=== PATIENT | male | born 1940 | race Caucasian/White ===

== ENCOUNTER 2020-05-20 06:44 | Observation (INO) ==
[2020-05-20] MEDS ORDERED: 0.9 % Sodium Chloride 500 ML IVC ONE (07:01)
[2020-05-20] MEDS ORDERED: Ondansetron 4 MG/2 ML VIAL IVP ONE (07:01)
[2020-05-20] MEDS ORDERED: Isovue-370 500 ML BOTTLE IVP ONE (07:01)
[2020-05-20 07:22] LABS: Basophils # 0.1 K/mcL (0.0-0.2); Basophils % 0.5 %; Eosinophils # 0.1 K/mcL (0.0-0.6); Eosinophils % 0.9 %; Hematocrit 45.2 % (37.5-50.1); Hemoglobin 15.1 g/dL (12.9-16.9); Immature Granulocytes % 0.3 % (0-4); Lymphocytes # 1.9 K/mcL (0.6-4.6); Lymphocytes % 19.5 %; Mean Corpuscular HGB Conc 33.4 g/dL (31.6-35.5); Mean Corpuscular Hemoglobin 31.1 pg (28.0-33.3); Mean Corpuscular Volume 93.2 fL (83.0-100.0); Mean Platelet Volume 10.9 fL (9.4-12.4); Monocytes # 0.9 K/mcL (0.0-1.3); Monocytes % 8.9 %; Neutrophils # 6.9 K/mcL (1.6-8.9); Platelet Count 150 K/mcL (140-400); Red Blood Count 4.85 M/mcL (4.19-5.50); Red Cell Distribution Width 12.7 % (11.5-14.5); Segmented Neutrophils % 69.9 %; White Blood Count 9.9 K/mcL (4.3-11.1)
[2020-05-20 07:24] LABS: D-Dimer < 215 ng/mLFEU (0-500)
[2020-05-20 07:28] LABS: INR 3.3; Prothrombin Time 37.3 Seconds (9.4-12.1)
[2020-05-20 07:30] LABS: BUN/Creatinine Ratio 14 (6-26); Blood Urea Nitrogen 14 mg/dL (8-23); Calcium 9.3 mg/dL (8.6-10.3); Carbon Dioxide 25 mEq/L (23-29); Chloride 102 mEq/L (98-107); Glucose 204 mg/dL (70-105); Osmolality,Calculated 284 (280-300); Potassium 4.1 mEq/L (3.5-5.1); Sodium 134 mEq/L (136-145); eGFR For African Americans > 60 (> 60); eGFR For Non-African Americans > 60 (> 60)
[2020-05-20 07:38] LABS: Troponin I 0.04 ng/mL (< 0.04)
[2020-05-20 09:28] LABS: Alanine Aminotransferase 16 Units/L (7-52); Albumin 3.9 g/dL (3.5-5.7); Albumin/Globulin Ratio 1.1 (1.1-2.2); Alkaline Phosphatase 67 Units/L (34-104); Aspartate Amino Transferase 16 Units/L (13-39); Bilirubin,Direct 0.1 mg/dL (0.0-0.2); Bilirubin,Indirect 0.7 mg/dL (0.0-1.0); Bilirubin,Total 0.8 mg/dL (0.3-1.0); Globulin 3.5 g/dL (2.4-3.5); Total Protein 7.4 g/dL (6.4-8.9)
[2020-05-20] MEDS ORDERED: Piperacillin/Tazobactam 3.375 GM in 0.9 % Sodium Chloride Mini Bag 100 ML IVPB SCH (10:42)
[2020-05-20] MEDS ORDERED: Ondansetron 4 MG/2 ML VIAL IVP PRN (10:43)
[2020-05-20] MEDS ORDERED: Naloxone 0.4 MG/ML INJ IVP PRN (10:43)
[2020-05-20] MEDS ORDERED: *HR* HYDROcodone/Acet 5/325 mg TABLET PO PRN (11:02)
[2020-05-20] MEDS ORDERED: Acetaminophen 325 MG TABLET PO PRN (11:02)
[2020-05-20] MEDS ORDERED: 0.9 % Sodium Chloride 1,000 ML IVC SCH (11:15)
[2020-05-20 12:37] LABS: Bilirubin,Urine Negative (Negative); Blood,Urine Negative (Negative); Clarity,Urine Clear (Clear); Color,Urine Light-Yellow (Yellow); Glucose,Urine (UA) 30 mg/dL (Normal); Ketones,Urine Negative (Negative); Leukocyte Esterase,Urine Negative (Negative); Nitrite,Urine Negative (Negative); Protein,Urine Negative (Neg-Trace); RBC,Urine 0-3 per hpf (0-3); Specific Gravity,Urine > 1.030 (1.010-1.025); Urobilinogen,Urine Normal (Normal)
[2020-05-20 13:53] LABS: C-Reactive Protein < 5 mg/L (Less than 10); Lipase 15 Units/L (11-82)
[2020-05-20 13:56] LABS: Troponin I 0.05 ng/mL (< 0.04)
[2020-05-20] MEDS: Piperacillin/Tazobactam 3.375 GM in 0.9 % Sodium Chloride Mini Bag 100 ML IVPB SCH (18:33)
[2020-05-21] MEDS: Piperacillin/Tazobactam 3.375 GM in 0.9 % Sodium Chloride Mini Bag 100 ML IVPB SCH ×2 (02:13→11:04)
[2020-05-21 05:31] LABS: INR 2.5; Prothrombin Time 28.3 Seconds (9.4-12.1)
[2020-05-21 05:49] LABS: BUN/Creatinine Ratio 10 (6-26); Blood Urea Nitrogen 11 mg/dL (8-23); Calcium 8.6 mg/dL (8.6-10.3); Carbon Dioxide 24 mEq/L (23-29); Chloride 104 mEq/L (98-107); Glucose 156 mg/dL (70-105); Osmolality,Calculated 285 (280-300); Potassium 4.3 mEq/L (3.5-5.1); Sodium 136 mEq/L (136-145); eGFR For African Americans > 60 (> 60); eGFR For Non-African Americans > 60 (> 60)
[2020-05-21] MEDS ORDERED: Albuterol 2.5 MG/3 ML NEBULIZER IH PRN (09:25)
[2020-05-21 15:02] VITALS: BP 150/77
== END 2020-05-21 17:36 | disposition home or self-care (01) ==
LOC: EMEROOARM 06:44 → 3ANU 06:44 → SUATTDRO 09:29 → 3ANU 10:22
PROVIDERS: ADMIT Student in an Organized Health Care Education/Training Program; ATTEND Internal Medicine

== ENCOUNTER 2022-05-05 00:13 | Inpatient (IN) ==
[2022-05-05] MEDS ORDERED: Ondansetron 4 MG/2 ML VIAL IVP PRN (04:10)
[2022-05-05] MEDS ORDERED: Naloxone 0.4 MG/ML INJ IVP PRN (04:10)
[2022-05-05] MEDS ORDERED: Ipratropium/Albuterol Neb 3 ML IH PRN (04:24)
[2022-05-05] MEDS ORDERED: D5% in Water 1,000 ML IVC PRN (04:54)
[2022-05-05] MEDS ORDERED: Dextrose Gel 15 GM/37.5 ML TUBE PO PRN ×2 (04:54)
[2022-05-05] MEDS ORDERED: *HR* Dextrose 50 % in Water (Syg) 50 ML SYRINGE IVP PRN (04:54)
[2022-05-05 05:51] LABS: Basophils % 0.1 %
[2022-05-05 05:53] LABS: Hemoglobin 14.9 g/dL (12.9-16.9); Immature Granulocytes % 0.5 % (0-4); Immature Platelets 6.1 % (1.1-6.1); Lymphocytes # 0.5 K/mcL (0.6-4.6); Lymphocytes % 6.7 %; Mean Corpuscular HGB Conc 33.1 g/dL (31.6-35.5); Mean Corpuscular Hemoglobin 30.7 pg (28.0-33.3); Mean Corpuscular Volume 92.6 fL (83.0-100.0); Mean Platelet Volume 10.3 fL (9.4-12.4); Monocytes # 0.1 K/mcL (0.0-1.3); Platelet Count 141 K/mcL (140-400); Red Blood Count 4.86 M/mcL (4.19-5.50); Red Cell Distribution Width 13.9 % (11.5-14.5); Segmented Neutrophils % 91.7 %; White Blood Count 7.9 K/mcL (4.3-11.1)
[2022-05-05 05:56] LABS: Neutrophils # 7.2 K/mcL (1.6-8.9)
[2022-05-05 06:13] LABS: Heparin anti-factor XA UFH < 0.04 IU/mL (0.30-0.70)
[2022-05-05 06:21] LABS: Activated Partial Thrombo Time 39.2 Seconds (26.0-36.0); INR 2.2; Prothrombin Time 24.6 Seconds (9.4-12.1)
[2022-05-05] MEDS ORDERED: Piperacillin/Tazobactam 3.375 GM in 0.9 % Sodium Chloride Mini Bag 100 ML IVPB SCH (08:00)
[2022-05-05 08:51] LABS: Albumin 4.1 g/dL (3.5-5.7); Albumin/Globulin Ratio 1.3 (1.1-2.2); Bilirubin,Direct 0.3 mg/dL (0.0-0.2); Bilirubin,Indirect 1.3 mg/dL (0.0-1.0); Bilirubin,Total 1.6 mg/dL (0.3-1.0); Calcium 9.1 mg/dL (8.6-10.3); Globulin 3.1 g/dL (2.4-3.5); Phosphorous 3.1 mg/dL (2.7-4.5); Potassium 4.2 mEq/L (3.5-5.1); Total Protein 7.2 g/dL (6.4-8.9)
[2022-05-05] MEDS ORDERED: *HR* Heparin 5,000 UNIT/ML VIAL IVP PRN (09:04)
[2022-05-05] MEDS: Insulin LISPRO 300 UNITS/3 ML VIAL SUBQ SCH ×3 (09:04→16:56)
[2022-05-05] MEDS ORDERED: *HR* Heparin 5,000 UNIT/ML VIAL IVP ONE (09:04)
[2022-05-05 09:05] LABS: Thyroid Stimulating Hormone 0.547 mcIU/mL (0.340-5.600)
[2022-05-05 09:08] LABS: Bilirubin,Urine Negative (Negative); Blood,Urine Trace (Negative); Clarity,Urine Clear (Clear); Color,Urine Colorless (Yellow); Glucose,Urine (UA) 200 mg/dL (Normal); Ketones,Urine 10 mg/dL (Negative); Leukocyte Esterase,Urine Negative (Negative); Mucus,Urine Few per lpf (None-Few); Nitrite,Urine Negative (Negative); PH,Urine 6.5 pH Units (5.0-8.0); Protein,Urine Trace mg/dL (Neg-Trace); RBC,Urine 0-3 per hpf (0-3); Specific Gravity,Urine 1.014 (1.010-1.025); Squamous Epithelial Cell,Urine Few per hpf (None-Few); Urobilinogen,Urine Normal (Normal); WBC,Urine 0-3 per hpf (0-3)
[2022-05-05] MEDS ORDERED: levoFLOXacin 750 MG TABLET PO SCH (09:15)
[2022-05-05 09:17] LABS: Estimated Average Glucose 151 mg/dl; Hemoglobin A1C 6.9 %
[2022-05-05 10:19] LABS: Adenovirus Not Detected (Not Detect); Bordetella Pertussis Not Detected (Not Detect); Chlamydophila pneumoniae Not Detected (Not Detect); Coronavirus 229E Not Detected (Not Detect); Coronavirus HKU1 Not Detected (Not Detect); Coronavirus NL63 Not Detected (Not Detect); Coronavirus OC43 Not Detected (Not Detect); Human Metapneumovirus Not Detected (Not Detect); Human Rhinovirus/Enterovirus Not Detected (Not Detect); Influenza A Subtype 2009 H1 Not Detected (Not Detect); Influenza B Not Detected (Not Detect); Mycoplasma pneumoniae Not Detected (Not Detect); Parainfluenza Virus 1 Not Detected (Not Detect); Parainfluenza Virus 2 Not Detected (Not Detect); Parainfluenza Virus 3 Not Detected (Not Detect); Parainfluenza Virus 4 Not Detected (Not Detect); Respiratory Syncytial Virus Not Detected (Not Detect); SARS-CoV-2 Not Detected (Not Detect)
[2022-05-05] MEDS: Heparin 25,000UNIT/250ML 1/2NS 25,000 UNIT/250 ML IV.SOLN IVC SCH (10:26)
[2022-05-05] MEDS ORDERED: Aspirin 81 MG TAB.CHEW PO ONE (10:46)
[2022-05-05] MEDS ORDERED: Iopamidol - 370 500 ML MLS IVP ONE ×2 (11:14→18:10)
[2022-05-05] MEDS: predniSONE 20 MG TABLET PO SCH (11:39)
[2022-05-05] MEDS: Budesonide/Formoterol 160/4.5 1 PUFF INH IH SCH ×2 (16:59→20:51)
[2022-05-05] MEDS ORDERED: Albuterol 2.5 MG/3 ML NEBULIZER IH PRN (17:58)
[2022-05-05] MEDS: *HR* LORazepam 1 MG TABLET PO SCH (19:58)
[2022-05-06 04:00] LABS: Basophils % 0.1 %
[2022-05-06 04:01] LABS: Hematocrit 41.7 % (37.5-50.1); Hemoglobin 13.5 g/dL (12.9-16.9); Immature Granulocytes % 0.5 % (0-4); Immature Platelets 6.8 % (1.1-6.1); Lymphocytes # 1.8 K/mcL (0.6-4.6); Lymphocytes % 10.2 %; Mean Corpuscular HGB Conc 32.4 g/dL (31.6-35.5); Mean Corpuscular Hemoglobin 30.5 pg (28.0-33.3); Mean Corpuscular Volume 94.1 fL (83.0-100.0); Mean Platelet Volume 10.6 fL (9.4-12.4); Monocytes # 1.5 K/mcL (0.0-1.3); Monocytes % 8.8 %; Neutrophils # 13.9 K/mcL (1.6-8.9); Platelet Count 143 K/mcL (140-400); Red Blood Count 4.43 M/mcL (4.19-5.50); Red Cell Distribution Width 13.9 % (11.5-14.5); Segmented Neutrophils % 80.4 %; White Blood Count 17.3 K/mcL (4.3-11.1)
[2022-05-06 04:21] LABS: Calcium 8.9 mg/dL (8.6-10.3); Potassium 4.8 mEq/L (3.5-5.1)
[2022-05-06 04:23] LABS: Troponin I 5.73 ng/mL (< 0.04)
[2022-05-06] MEDS ORDERED: Vancomycin 1,500 MG/265 ML IV.SOLN IVPB SCH (06:00)
[2022-05-06] MEDS: Heparin 25,000UNIT/250ML 1/2NS 25,000 UNIT/250 ML IV.SOLN IVC SCH (08:36)
[2022-05-06] MEDS: predniSONE 20 MG TABLET PO SCH (08:50)
[2022-05-06] MEDS: Aspirin 81 MG TAB.CHEW PO SCH (08:54)
[2022-05-06] MEDS: Insulin LISPRO 300 UNITS/3 ML VIAL SUBQ SCH ×3 (08:54→17:36)
[2022-05-06 10:17] LABS: INR 1.7; Prothrombin Time 19.3 Seconds (9.4-12.1)
[2022-05-06] MEDS: Budesonide/Formoterol 160/4.5 1 PUFF INH IH SCH ×2 (10:28→19:53)
[2022-05-06] MEDS ORDERED: Nitroglycerin 1,000 MCG/5 ML VIAL IV ONE (12:37)
[2022-05-06] MEDS ORDERED: 0.9 % Sodium Chloride 2,000 ML ONE (12:37)
[2022-05-06] MEDS ORDERED: Iopamidol - 370 200 ML INFUS..BTL ONE (12:37)
[2022-05-06] MEDS ORDERED: Heparin 1,000 UNITS/500 mL 500 ML ONE (12:37)
[2022-05-06] MEDS ORDERED: *HR* Heparin 10,000 UNIT/10 ML VIAL ONE (12:37)
[2022-05-06] MEDS ORDERED: *HR* Midazolam HCl 2 MG/2 ML VIAL ONE (13:15)
[2022-05-06] MEDS ORDERED: *HR* FentaNYL (PF) 100 MCG/2 ML VIAL ONE (13:15)
[2022-05-06] MEDS: Piperacillin/Tazobactam 3.375 GM in 0.9 % Sodium Chloride Mini Bag 100 ML IVPB SCH (18:38)
[2022-05-06] MEDS: *HR* LORazepam 1 MG TABLET PO SCH (20:33)
[2022-05-07] MEDS: Piperacillin/Tazobactam 3.375 GM in 0.9 % Sodium Chloride Mini Bag 100 ML IVPB SCH ×3 (01:44→17:12)
[2022-05-07] MEDS: Acetaminophen 325 MG TABLET PO PRN (02:33)
[2022-05-07 03:20] LABS: Hemoglobin 13.4 g/dL (12.9-16.9)
[2022-05-07 03:22] LABS: Hematocrit 41.1 % (37.5-50.1); Immature Platelets 7.5 % (1.1-6.1); Mean Corpuscular HGB Conc 32.6 g/dL (31.6-35.5); Mean Corpuscular Hemoglobin 30.7 pg (28.0-33.3); Mean Corpuscular Volume 94.1 fL (83.0-100.0); Mean Platelet Volume 10.8 fL (9.4-12.4); Red Blood Count 4.37 M/mcL (4.19-5.50); White Blood Count 14.1 K/mcL (4.3-11.1)
[2022-05-07 03:27] LABS: BUN/Creatinine Ratio 33 (6-26); Blood Urea Nitrogen 26 mg/dL (8-23); Calcium 8.9 mg/dL (8.6-10.3); Carbon Dioxide 22 mEq/L (23-29); Chloride 106 mEq/L (98-107); Glucose 134 mg/dL (70-105); Osmolality,Calculated 289 (280-300); Sodium 136 mEq/L (136-145)
[2022-05-07] MEDS: Budesonide/Formoterol 160/4.5 1 PUFF INH IH SCH ×2 (08:04→20:12)
[2022-05-07] MEDS: Heparin 25,000UNIT/250ML 1/2NS 25,000 UNIT/250 ML IV.SOLN IVC SCH (08:49)
[2022-05-07] MEDS: predniSONE 20 MG TABLET PO SCH (08:50)
[2022-05-07] MEDS: Insulin LISPRO 300 UNITS/3 ML VIAL SUBQ SCH ×3 (08:50→17:12)
[2022-05-07] MEDS: Aspirin 81 MG TAB.CHEW PO SCH (08:50)
[2022-05-07] MEDS: *HR* LORazepam 1 MG TABLET PO SCH (21:55)
[2022-05-08] MEDS: Piperacillin/Tazobactam 3.375 GM in 0.9 % Sodium Chloride Mini Bag 100 ML IVPB SCH ×3 (01:06→16:03)
[2022-05-08 02:24] LABS: Hematocrit 40.7 % (37.5-50.1); Hemoglobin 13.2 g/dL (12.9-16.9); Immature Platelets 7.6 % (1.1-6.1); Mean Corpuscular HGB Conc 32.4 g/dL (31.6-35.5); Mean Corpuscular Hemoglobin 30.4 pg (28.0-33.3); Mean Corpuscular Volume 93.8 fL (83.0-100.0); Red Blood Count 4.34 M/mcL (4.19-5.50); White Blood Count 13.3 K/mcL (4.3-11.1)
[2022-05-08 02:38] LABS: BUN/Creatinine Ratio 35 (6-26); Blood Urea Nitrogen 28 mg/dL (8-23); Calcium 8.6 mg/dL (8.6-10.3); Carbon Dioxide 23 mEq/L (23-29); Chloride 108 mEq/L (98-107); Glucose 119 mg/dL (70-105); Osmolality,Calculated 293 (280-300); Potassium 4.4 mEq/L (3.5-5.1); Sodium 138 mEq/L (136-145)
[2022-05-08] MEDS: Heparin 25,000UNIT/250ML 1/2NS 25,000 UNIT/250 ML IV.SOLN IVC SCH (05:15)
[2022-05-08] MEDS: Budesonide/Formoterol 160/4.5 1 PUFF INH IH SCH ×2 (07:37→19:55)
[2022-05-08] MEDS: Insulin LISPRO 300 UNITS/3 ML VIAL SUBQ SCH ×3 (07:53→16:08)
[2022-05-08] MEDS: Aspirin 81 MG TAB.CHEW PO SCH (07:55)
[2022-05-08] MEDS: predniSONE 20 MG TABLET PO SCH (07:55)
[2022-05-08] MEDS: *HR* LORazepam 1 MG TABLET PO SCH (20:13)
[2022-05-09] MEDS: Piperacillin/Tazobactam 3.375 GM in 0.9 % Sodium Chloride Mini Bag 100 ML IVPB SCH ×4 (00:15→23:43)
[2022-05-09] MEDS: Heparin 25,000UNIT/250ML 1/2NS 25,000 UNIT/250 ML IV.SOLN IVC SCH ×2 (01:16→22:20)
[2022-05-09 02:58] LABS: Hematocrit 40.4 % (37.5-50.1); Hemoglobin 13.2 g/dL (12.9-16.9); Mean Corpuscular HGB Conc 32.7 g/dL (31.6-35.5); Mean Corpuscular Hemoglobin 31.2 pg (28.0-33.3); Mean Corpuscular Volume 95.5 fL (83.0-100.0); Mean Platelet Volume 10.9 fL (9.4-12.4); Platelet Count 132 K/mcL (140-400); Red Blood Count 4.23 M/mcL (4.19-5.50); Red Cell Distribution Width 14.1 % (11.5-14.5); White Blood Count 14.5 K/mcL (4.3-11.1)
[2022-05-09 03:20] LABS: Calcium 8.8 mg/dL (8.6-10.3); Potassium 4.1 mEq/L (3.5-5.1)
[2022-05-09] MEDS: Insulin LISPRO 300 UNITS/3 ML VIAL SUBQ SCH ×3 (07:09→17:00)
[2022-05-09] MEDS: Budesonide/Formoterol 160/4.5 1 PUFF INH IH SCH ×2 (07:47→22:30)
[2022-05-09] MEDS: Aspirin 81 MG TAB.CHEW PO SCH (08:17)
[2022-05-09] MEDS: predniSONE 20 MG TABLET PO SCH (08:17)
[2022-05-09 10:48] LABS: ABG Base Excess 0 mEq/L (-2 to 3); ABG HCO3 23 mEq/L (21-27); ABG Oxygen Saturation 93 % (95-98); ABG PCO2 34 mmHg (35-45); ABG PH 7.45 pH Units (7.32-7.45); ABG PO2 63 mmHg (85-104); ABG TCO2 24 mEq/L (20-26)
[2022-05-09] MEDS: *HR* LORazepam 1 MG TABLET PO SCH (20:03)
[2022-05-09] MEDS: Acetaminophen 325 MG TABLET PO PRN (22:21)
[2022-05-10 03:39] LABS: Hematocrit 40.3 % (37.5-50.1); Hemoglobin 13.1 g/dL (12.9-16.9); Mean Corpuscular HGB Conc 32.5 g/dL (31.6-35.5); Mean Corpuscular Hemoglobin 31.1 pg (28.0-33.3); Mean Corpuscular Volume 95.7 fL (83.0-100.0); Platelet Count 142 K/mcL (140-400); Red Blood Count 4.21 M/mcL (4.19-5.50); Red Cell Distribution Width 14.1 % (11.5-14.5); White Blood Count 13.4 K/mcL (4.3-11.1)
[2022-05-10 03:55] LABS: Calcium 8.5 mg/dL (8.6-10.3); Potassium 4.3 mEq/L (3.5-5.1)
[2022-05-10] MEDS: Budesonide/Formoterol 160/4.5 1 PUFF INH IH SCH ×2 (07:50→20:28)
[2022-05-10] MEDS: Aspirin 81 MG TAB.CHEW PO SCH (07:52)
[2022-05-10] MEDS: Piperacillin/Tazobactam 3.375 GM in 0.9 % Sodium Chloride Mini Bag 100 ML IVPB SCH ×2 (07:52→15:51)
[2022-05-10] MEDS: Insulin LISPRO 300 UNITS/3 ML VIAL SUBQ SCH ×3 (08:23→16:20)
[2022-05-10] MEDS ORDERED: *HR* LORazepam 1 MG TABLET ONE (20:02)
[2022-05-10] MEDS: *HR* LORazepam 1 MG TABLET PO SCH (20:18)
[2022-05-10] MEDS: Heparin 25,000UNIT/250ML 1/2NS 25,000 UNIT/250 ML IV.SOLN IVC SCH (20:19)
[2022-05-11] MEDS: Piperacillin/Tazobactam 3.375 GM in 0.9 % Sodium Chloride Mini Bag 100 ML IVPB SCH ×3 (01:13→16:22)
[2022-05-11 03:44] LABS: Hematocrit 41.7 % (37.5-50.1); Hemoglobin 13.6 g/dL (12.9-16.9); Mean Corpuscular HGB Conc 32.6 g/dL (31.6-35.5); Mean Corpuscular Hemoglobin 30.8 pg (28.0-33.3); Mean Corpuscular Volume 94.3 fL (83.0-100.0); Mean Platelet Volume 10.5 fL (9.4-12.4); Platelet Count 151 K/mcL (140-400); Red Blood Count 4.42 M/mcL (4.19-5.50); Red Cell Distribution Width 14.3 % (11.5-14.5); White Blood Count 12.5 K/mcL (4.3-11.1)
[2022-05-11 04:02] LABS: Calcium 8.4 mg/dL (8.6-10.3); Potassium 4.2 mEq/L (3.5-5.1)
[2022-05-11] MEDS: Insulin LISPRO 300 UNITS/3 ML VIAL SUBQ SCH ×3 (07:41→16:21)
[2022-05-11] MEDS: Budesonide/Formoterol 160/4.5 1 PUFF INH IH SCH ×2 (07:47→21:54)
[2022-05-11] MEDS: Aspirin 81 MG TAB.CHEW PO SCH (07:53)
[2022-05-11] MEDS: Furosemide 20 MG/2 ML VIAL IVP SCH (13:03)
[2022-05-11] MEDS: Heparin 25,000UNIT/250ML 1/2NS 25,000 UNIT/250 ML IV.SOLN IVC SCH (16:25)
[2022-05-11] MEDS ORDERED: Vancomycin 1,750 MG/517.5 ML IV.SOLN IVPB SCH (18:00)
[2022-05-11] MEDS: *HR* LORazepam 1 MG TABLET PO SCH (20:00)
[2022-05-11] MEDS: Acetaminophen 325 MG TABLET PO PRN (20:00)
[2022-05-12] MEDS: Piperacillin/Tazobactam 3.375 GM in 0.9 % Sodium Chloride Mini Bag 100 ML IVPB SCH ×3 (01:47→17:21)
[2022-05-12 03:04] LABS: Basophils % 0.5 %
[2022-05-12 03:06] LABS: Basophils # 0.1 K/mcL (0.0-0.2); Eosinophils # 0.2 K/mcL (0.0-0.6); Eosinophils % 2.2 %; Hematocrit 44.8 % (37.5-50.1); Hemoglobin 14.3 g/dL (12.9-16.9); Immature Granulocytes % 0.6 % (0-4); Immature Platelets 6.7 % (1.1-6.1); Lymphocytes # 2.7 K/mcL (0.6-4.6); Lymphocytes % 26.8 %; Mean Corpuscular HGB Conc 31.9 g/dL (31.6-35.5); Mean Corpuscular Hemoglobin 30.2 pg (28.0-33.3); Mean Corpuscular Volume 94.7 fL (83.0-100.0); Mean Platelet Volume 10.2 fL (9.4-12.4); Monocytes # 0.9 K/mcL (0.0-1.3); Monocytes % 9.3 %; Neutrophils # 6.1 K/mcL (1.6-8.9); Platelet Count 155 K/mcL (140-400); Red Blood Count 4.73 M/mcL (4.19-5.50); Red Cell Distribution Width 14.5 % (11.5-14.5); Segmented Neutrophils % 60.6 %; White Blood Count 10.1 K/mcL (4.3-11.1)
[2022-05-12 03:22] LABS: Calcium 8.9 mg/dL (8.6-10.3); Potassium 4.1 mEq/L (3.5-5.1)
[2022-05-12] MEDS: Insulin LISPRO 300 UNITS/3 ML VIAL SUBQ SCH ×3 (07:40→17:11)
[2022-05-12] MEDS: Budesonide/Formoterol 160/4.5 1 PUFF INH IH SCH ×2 (07:51→20:27)
[2022-05-12] MEDS: Aspirin 81 MG TAB.CHEW PO SCH (08:00)
[2022-05-12] MEDS: Furosemide 20 MG/2 ML VIAL IVP SCH (08:00)
[2022-05-12] MEDS: Acetaminophen 325 MG TABLET PO PRN (10:31)
[2022-05-12] MEDS: Heparin 25,000UNIT/250ML 1/2NS 25,000 UNIT/250 ML IV.SOLN IVC SCH (10:33)
[2022-05-12] MEDS: *HR* Heparin 5,000 UNIT/ML VIAL IVP PRN ×2 (11:45→18:19)
[2022-05-12] MEDS: *HR* LORazepam 1 MG TABLET PO SCH (21:20)
[2022-05-13 03:00] LABS: Basophils # 0.1 K/mcL (0.0-0.2); Basophils % 0.6 %; Eosinophils # 0.2 K/mcL (0.0-0.6); Eosinophils % 2.5 %; Hematocrit 44.1 % (37.5-50.1); Hemoglobin 14.2 g/dL (12.9-16.9); Immature Granulocytes % 0.7 % (0-4); Lymphocytes # 2.4 K/mcL (0.6-4.6); Lymphocytes % 24.2 %; Mean Corpuscular HGB Conc 32.2 g/dL (31.6-35.5); Mean Corpuscular Hemoglobin 30.7 pg (28.0-33.3); Mean Corpuscular Volume 95.5 fL (83.0-100.0); Mean Platelet Volume 10.5 fL (9.4-12.4); Monocytes # 0.9 K/mcL (0.0-1.3); Monocytes % 9.5 %; Neutrophils # 6.1 K/mcL (1.6-8.9); Platelet Count 139 K/mcL (140-400); Red Blood Count 4.62 M/mcL (4.19-5.50); Red Cell Distribution Width 14.5 % (11.5-14.5); Segmented Neutrophils % 62.5 %; White Blood Count 9.7 K/mcL (4.3-11.1)
[2022-05-13 03:22] LABS: Calcium 8.7 mg/dL (8.6-10.3); Potassium 4.1 mEq/L (3.5-5.1)
[2022-05-13] MEDS: Heparin 25,000UNIT/250ML 1/2NS 25,000 UNIT/250 ML IV.SOLN IVC SCH (03:47)
[2022-05-13] MEDS ORDERED: Heparin 15,000 UNIT in 0.9 % Sodium Chloride 500 ML IR ONE (07:00)
[2022-05-13] MEDS ORDERED: Buckersberg's Blood Cardioplegia PF ONE (07:00)
[2022-05-13] MEDS ORDERED: del Nido Cardioplegia Solution PF ONE ×2 (07:00)
[2022-05-13] MEDS ORDERED: Norepinephrine 4 MG in 0.9 % Sodium Chloride 250 ML IVC PRN (07:00)
[2022-05-13] MEDS: Budesonide/Formoterol 160/4.5 1 PUFF INH IH SCH (07:15)
[2022-05-13] MEDS: Insulin LISPRO 300 UNITS/3 ML VIAL SUBQ SCH ×3 (07:49→16:12)
[2022-05-13] MEDS: Furosemide 20 MG/2 ML VIAL IVP SCH (08:05)
[2022-05-13] MEDS: Aspirin 81 MG TAB.CHEW PO SCH (08:05)
[2022-05-13] MEDS: Piperacillin/Tazobactam 3.375 GM in 0.9 % Sodium Chloride Mini Bag 100 ML IVPB SCH ×3 (08:05→13:48)
[2022-05-13 11:04] LABS: INR 1.1; Prothrombin Time 12.8 Seconds (9.4-12.1)
[2022-05-13 12:57] VITALS: O2SAT 94
[2022-05-13] MEDS ORDERED: Apixaban 5 MG TABLET PO SCH ×2 (13:00→17:00)
[2022-05-13 16:03] VITALS: BP 135/56; PULSE 58; TEMP 98
== END 2022-05-13 19:15 | disposition home or self-care (01) | DRG 189 ==
LOC: 2NENU → SUATTDRO 02:56
PROVIDERS: ADMIT Internal Medicine; ATTEND Internal Medicine

== ENCOUNTER 2022-06-07 10:53 | Inpatient (IN) ==
[2022-06-07] MEDS ORDERED: Naloxone 0.4 MG/ML INJ IVP PRN (12:05)
[2022-06-07] MEDS ORDERED: Albuterol 2.5 MG/3 ML NEBULIZER IH PRN (12:11)
[2022-06-07] MEDS ORDERED: Ondansetron 4 MG/2 ML VIAL IVP PRN (12:11)
[2022-06-07 12:58] LABS: Eosinophils % 1.5 %
[2022-06-07 13:00] LABS: Basophils % 0.4 %; Eosinophils # 0.1 K/mcL (0.0-0.6); Hematocrit 45.2 % (37.5-50.1); Hemoglobin 14.6 g/dL (12.9-16.9); Immature Granulocytes % 0.2 % (0-4); Immature Platelets 7.3 % (1.1-6.1); Lymphocytes # 1.7 K/mcL (0.6-4.6); Lymphocytes % 19.6 %; Mean Corpuscular HGB Conc 32.3 g/dL (31.6-35.5); Mean Corpuscular Hemoglobin 30.5 pg (28.0-33.3); Mean Corpuscular Volume 94.6 fL (83.0-100.0); Mean Platelet Volume 10.1 fL (9.4-12.4); Monocytes % 11.8 %; Neutrophils # 5.6 K/mcL (1.6-8.9); Platelet Count 109 K/mcL (140-400); Red Blood Count 4.78 M/mcL (4.19-5.50); Red Cell Distribution Width 13.7 % (11.5-14.5); Segmented Neutrophils % 66.5 %; White Blood Count 8.4 K/mcL (4.3-11.1)
[2022-06-07 13:02] LABS: INR 1.4; Prothrombin Time 15.3 Seconds (9.4-12.1)
[2022-06-07 13:42] LABS: Albumin 3.7 g/dL (3.5-5.7); Albumin/Globulin Ratio 1.2 (1.1-2.2); Bilirubin,Total 1.1 mg/dL (0.3-1.0); Calcium 9.2 mg/dL (8.6-10.3); Phosphorous 2.7 mg/dL (2.7-4.5); Potassium 4.2 mEq/L (3.5-5.1); Total Protein 6.7 g/dL (6.4-8.9)
[2022-06-07] MEDS ORDERED: Furosemide 20 MG/2 ML VIAL IVP ONE (13:50)
[2022-06-07] MEDS: Ipratropium/Albuterol Neb 3 ML IH SCH ×2 (16:00→23:13)
[2022-06-07 19:38] LABS: Chol/HDL Ratio 3.3 (0-4.9)
[2022-06-07 19:50] LABS: Estimated Average Glucose 146 mg/dl; Hemoglobin A1C 6.7 %
[2022-06-07] MEDS: *HR* Heparin 5,000 UNIT/ML VIAL SQ SCH (20:23)
[2022-06-07] MEDS: Chlorhexidine Rinse 15 ML MOUTHWASH MM SCH (20:35)
[2022-06-07] MEDS: *HR* LORazepam 1 MG TABLET PO PRN (22:03)
[2022-06-08] MEDS: *HR* Heparin 5,000 UNIT/ML VIAL SQ SCH ×2 (02:00→20:18)
[2022-06-08] MEDS: Ipratropium/Albuterol Neb 3 ML IH SCH ×4 (03:51→22:46)
[2022-06-08] MEDS: Chlorhexidine Rinse 15 ML MOUTHWASH MM SCH ×2 (04:47→22:46)
[2022-06-08 05:08] LABS: Basophils % 0.5 %; Eosinophils # 0.1 K/mcL (0.0-0.6); Eosinophils % 1.5 %; Hematocrit 42.5 % (37.5-50.1); Immature Granulocytes % 0.3 % (0-4); Immature Platelets 7.2 % (1.1-6.1); Lymphocytes # 1.8 K/mcL (0.6-4.6); Lymphocytes % 20.9 %; Mean Corpuscular HGB Conc 32.9 g/dL (31.6-35.5); Mean Corpuscular Hemoglobin 30.5 pg (28.0-33.3); Mean Corpuscular Volume 92.6 fL (83.0-100.0); Mean Platelet Volume 10.8 fL (9.4-12.4); Monocytes % 11.1 %; Neutrophils # 5.8 K/mcL (1.6-8.9); Platelet Count 106 K/mcL (140-400); Red Blood Count 4.59 M/mcL (4.19-5.50); Red Cell Distribution Width 13.5 % (11.5-14.5); Segmented Neutrophils % 65.7 %; White Blood Count 8.8 K/mcL (4.3-11.1)
[2022-06-08 05:13] LABS: INR 1.4; Prothrombin Time 15.1 Seconds (9.4-12.1)
[2022-06-08 05:16] LABS: Activated Partial Thrombo Time 29.7 Seconds (26.0-36.0)
[2022-06-08 05:20] LABS: Calcium 8.8 mg/dL (8.6-10.3); Magnesium 1.9 mg/dL (1.6-2.6); Potassium 3.8 mEq/L (3.5-5.1)
[2022-06-08] MEDS ORDERED: Papaverine 60 MG/2 ML VIAL IVP ONE (05:57)
[2022-06-08] MEDS ORDERED: CeFAZolin Syr 2,000MG/20 ML 2,000 MG/20 ML SYRINGE IVPB ONE (06:00)
[2022-06-08] MEDS ORDERED: Aspirin 81 MG TAB.CHEW PO ONE (06:00)
[2022-06-08] MEDS ORDERED: DOBUTamine 1,000 MG/250 ML BAG ONE (06:20)
[2022-06-08] MEDS ORDERED: NiCARdipine 2.5 MG/10 ML Syringe IVPB ONE (06:20)
[2022-06-08 06:27] LABS: Platelet Estimate Slight Decrease (Normal)
[2022-06-08] MEDS ORDERED: *HR* Midazolam HCl 5 MG/5 ML VIAL IVP ONE ×3 (06:28→10:18)
[2022-06-08] MEDS ORDERED: *HR* FentaNYL (PF) 1,000 MCG/20 ML VIAL ONE (06:28)
[2022-06-08] MEDS ORDERED: EPHEDrine sulfate 50 MG/10 ML VIAL IVP ONE (06:29)
[2022-06-08] MEDS ORDERED: *HR* Norepinephrine 4 MG/4 ML VIAL IVC ONE (06:31)
[2022-06-08] MEDS ORDERED: niCARdipine 20 MG/200 ML MLS IVC ONE (06:31)
[2022-06-08] MEDS ORDERED: *HR* Rocuronium Bromide 50 MG/5 ML VIAL ONE (06:31)
[2022-06-08] MEDS ORDERED: *HR* Etomidate 20 MG/10 ML AMPUL IVP ONE (06:33)
[2022-06-08] MEDS ORDERED: Tranexamic Acid 1,000 MG/10 ML VIAL ONE (06:33)
[2022-06-08] MEDS ORDERED: Protamine Sulfate 250 MG/25 ML VIAL IVP ONE (06:35)
[2022-06-08] MEDS ORDERED: Calcium Gluconate 1,000 MG/10 ML VIAL ONE (06:36)
[2022-06-08] MEDS ORDERED: *HR* Vasopressin 20 UNIT/ML VIAL ONE (06:50)
[2022-06-08] MEDS ORDERED: Buckersberg's Blood Cardioplegia PF ONE (07:00)
[2022-06-08] MEDS ORDERED: Heparin 15,000 UNIT in 0.9 % Sodium Chloride 500 ML IR ONE (07:00)
[2022-06-08] MEDS ORDERED: Norepinephrine 4 MG in 0.9 % Sodium Chloride 250 ML IVC PRN (07:00)
[2022-06-08] MEDS ORDERED: del Nido Cardioplegia Solution PF ONE ×2 (07:00)
[2022-06-08] MEDS ORDERED: Iopamidol - 370 200 ML INFUS..BTL ONE ×2 (07:05→13:55)
[2022-06-08] MEDS ORDERED: Heparin 1,000 UNITS/500 mL 1,000 ML ONE (07:05)
[2022-06-08] MEDS ORDERED: Heparin 1,000 UNITS/500 mL 500 ML ONE ×2 (07:07→13:55)
[2022-06-08] MEDS ORDERED: *HR* Midazolam HCl 2 MG/2 ML VIAL ONE (07:32)
[2022-06-08] MEDS ORDERED: *HR* FentaNYL (PF) 100 MCG/2 ML VIAL ONE (07:32)
[2022-06-08] MEDS ORDERED: 0.9 % Sodium Chloride 1,000 ML ONE ×2 (07:32→15:52)
[2022-06-08] MEDS ORDERED: SODIUM CHLORIDE IR PRN ×2 (08:30)
[2022-06-08] MEDS ORDERED: CATH TIP IR PRN ×2 (08:30)
[2022-06-08] MEDS ORDERED: PHENTOLAMINE MESYLATE IR PRN ×2 (08:30)
[2022-06-08] MEDS ORDERED: Lidocaine Jelly 11 ml Syringe ONE (08:48)
[2022-06-08] MEDS ORDERED: Albumin Human 5% 0 GM/0 ML IV.SOLN ONE (09:12)
[2022-06-08 09:19] LABS: ABG Base Excess -2 mEq/L (-2 to 3); ABG Chloride 106 mEq/L (98-107); ABG Glucose 124 mg/dL (60-95); ABG HCO3 26 mEq/L (21-27); ABG Ionized Calcium 1.23 mmol/L (1.15-1.35); ABG Oxygen Saturation 100 % (95-98); ABG PCO2 52 mmHg (35-45); ABG PO2 190 mmHg (85-104); ABG TCO2 27 mEq/L (20-26)
[2022-06-08 09:35] LABS: ABG Base Excess -1 mEq/L (-2 to 3); ABG Chloride 106 mEq/L (98-107); ABG Glucose 134 mg/dL (60-95); ABG HCO3 25 mEq/L (21-27); ABG Ionized Calcium 1.21 mmol/L (1.15-1.35); ABG Oxygen Saturation 96 % (95-98); ABG PCO2 48 mmHg (35-45); ABG PH 7.33 pH Units (7.32-7.45); ABG PO2 86 mmHg (85-104); ABG TCO2 27 mEq/L (20-26)
[2022-06-08] MEDS ORDERED: Artificial Tears SOLN 15 ML BOTTLE BOTH EYES PRN (10:17)
[2022-06-08] MEDS: FentaNYL (PF) 1,000 MCG/100 ML IV.SOLN IVC SCH ×2 (10:35→19:15)
[2022-06-08] MEDS: Midazolam HCl 50 MG/50 ML IV.SOLN IVC SCH ×2 (10:44→19:49)
[2022-06-08 11:29] LABS: ABG Base Excess -1 mEq/L (-2 to 3); ABG HCO3 25 mEq/L (21-27); ABG Oxygen Saturation 98 % (95-98); ABG PCO2 47 mmHg (35-45); ABG PH 7.33 pH Units (7.32-7.45); ABG PO2 118 mmHg (85-104); ABG TCO2 27 mEq/L (20-26); Blood Gas Modality AF; Blood Gas VT 450 cc
[2022-06-08] MEDS: Artificial Tears SOLN 15 ML BOTTLE BOTH EYES SCH ×3 (12:42→20:18)
[2022-06-08] MEDS ORDERED: 0.9 % Sodium Chloride 2,000 ML ONE (13:55)
[2022-06-08] MEDS ORDERED: *HR* Heparin 10,000 UNIT/10 ML VIAL ONE (13:55)
[2022-06-08] MEDS ORDERED: Nitroglycerin 1,000 MCG/5 ML VIAL IV ONE (13:55)
[2022-06-08 13:59] LABS: BUN/Creatinine Ratio 23 (6-26); Blood Urea Nitrogen 17 mg/dL (8-23); Calcium 8.6 mg/dL (8.6-10.3); Carbon Dioxide 24 mEq/L (23-29); Chloride 107 mEq/L (98-107); Glucose 125 mg/dL (70-105); Magnesium 1.9 mg/dL (1.6-2.6); Osmolality,Calculated 287 (280-300); Phosphorous 3.9 mg/dL (2.7-4.5); Potassium 4.3 mEq/L (3.5-5.1); Sodium 137 mEq/L (136-145)
[2022-06-08] MEDS ORDERED: *HR* Ticagrelor 90 MG TABLET ONE (14:47)
[2022-06-08] MEDS: *HR* Ticagrelor 90 MG TABLET PO SCH (22:46)
[2022-06-08 23:40] LABS: ABG Base Excess 0 mEq/L (-2 to 3); ABG HCO3 25 mEq/L (21-27); ABG Oxygen Saturation 93 % (95-98); ABG PCO2 43 mmHg (35-45); ABG PH 7.38 pH Units (7.32-7.45); ABG PO2 70 mmHg (85-104); ABG TCO2 27 mEq/L (20-26); Blood Gas Modality ASSIST CONTROL; Blood Gas VT 450 cc
[2022-06-09] MEDS: Artificial Tears SOLN 15 ML BOTTLE BOTH EYES SCH ×7 (00:06→23:20)
[2022-06-09] MEDS: FentaNYL (PF) 1,000 MCG/100 ML IV.SOLN IVC SCH (01:39)
[2022-06-09] MEDS: Ipratropium/Albuterol Neb 3 ML IH SCH ×4 (04:20→21:40)
[2022-06-09 04:34] LABS: ABG Base Excess 1 mEq/L (-2 to 3); ABG HCO3 26 mEq/L (21-27); ABG Oxygen Saturation 90 % (95-98); ABG PCO2 41 mmHg (35-45); ABG PH 7.41 pH Units (7.32-7.45); ABG PO2 58 mmHg (85-104); ABG TCO2 27 mEq/L (20-26); Blood Gas Modality ASSIST CONTROL; Blood Gas VT 450 cc
[2022-06-09] MEDS: *HR* Heparin 5,000 UNIT/ML VIAL SQ SCH (05:18)
[2022-06-09] MEDS: Chlorhexidine Rinse 15 ML MOUTHWASH MM SCH ×2 (07:44→19:41)
[2022-06-09] MEDS: *HR* Ticagrelor 90 MG TABLET PO SCH ×2 (07:44→19:33)
[2022-06-09] MEDS: Pantoprazole 40 MG VIAL IVP SCH (07:44)
[2022-06-09] MEDS ORDERED: *HR* Heparin 5,000 UNIT/ML VIAL IVP PRN ×2 (08:19)
[2022-06-09] MEDS ORDERED: *HR* Heparin 5,000 UNIT/ML VIAL IVP ONE (08:19)
[2022-06-09] MEDS ORDERED: Heparin 25,000UNIT/250ML 1/2NS 25,000 UNIT/250 ML IV.SOLN IVC SCH (08:30)
[2022-06-09 08:42] LABS: Heparin anti-factor XA UFH < 0.04 IU/mL (0.30-0.70); INR 1.3; Prothrombin Time 14.8 Seconds (9.4-12.1)
[2022-06-09 08:45] LABS: Activated Partial Thrombo Time 30.4 Seconds (26.0-36.0); Basophils % 0.3 %; Hematocrit 43.7 % (37.5-50.1); Segmented Neutrophils % 74.9 %
[2022-06-09 08:47] LABS: Eosinophils # 0.1 K/mcL (0.0-0.6); Hemoglobin 14.6 g/dL (12.9-16.9); Immature Granulocytes % 0.2 % (0-4); Immature Platelets 6.6 % (1.1-6.1); Lymphocytes # 1.2 K/mcL (0.6-4.6); Mean Corpuscular HGB Conc 33.4 g/dL (31.6-35.5); Mean Corpuscular Hemoglobin 31.7 pg (28.0-33.3); Mean Corpuscular Volume 94.8 fL (83.0-100.0); Mean Platelet Volume 10.6 fL (9.4-12.4); Monocytes # 1.1 K/mcL (0.0-1.3); Monocytes % 11.6 %; Neutrophils # 7.3 K/mcL (1.6-8.9); Platelet Count 116 K/mcL (140-400); Red Blood Count 4.61 M/mcL (4.19-5.50); Red Cell Distribution Width 13.7 % (11.5-14.5); White Blood Count 9.7 K/mcL (4.3-11.1)
[2022-06-09 08:53] LABS: BUN/Creatinine Ratio 22 (6-26); Blood Urea Nitrogen 17 mg/dL (8-23); Calcium 8.9 mg/dL (8.6-10.3); Carbon Dioxide 26 mEq/L (23-29); Chloride 105 mEq/L (98-107); Glucose 123 mg/dL (70-105); Magnesium 1.9 mg/dL (1.6-2.6); Osmolality,Calculated 287 (280-300); Phosphorous 3.2 mg/dL (2.7-4.5); Potassium 4.1 mEq/L (3.5-5.1); Sodium 137 mEq/L (136-145)
[2022-06-09] MEDS ORDERED: Cefepime HCl 2,000 MG in 0.9 % Sodium Chloride 10 ML IVP SCH (10:00)
[2022-06-09] MEDS: Heparin 25,000UNIT/250ML 1/2NS 25,000 UNIT/250 ML IV.SOLN IVC SCH (10:30)
[2022-06-09] MEDS: Furosemide 20 MG/2 ML VIAL IVP SCH (11:33)
[2022-06-09] MEDS: Metoprolol XL (24 HR) Succ 25 MG TAB.ER.24H PO SCH (17:07)
[2022-06-09] MEDS: Aspirin 81 MG TAB.CHEW PO SCH (17:07)
[2022-06-09] MEDS: Acetaminophen 325 MG TABLET PO PRN (17:08)
[2022-06-09 18:08] LABS: Protein/Creatinine Ratio,Urine 7.16 mg/mg (0.00-0.20)
[2022-06-09] MEDS: *HR* LORazepam 1 MG TABLET PO PRN (21:19)
[2022-06-09] MEDS: Cefepime HCl 2,000 MG in 0.9 % Sodium Chloride 10 ML IVP SCH (21:19)
[2022-06-10 03:49] LABS: INR 1.4; Prothrombin Time 16.1 Seconds (9.4-12.1)
[2022-06-10 03:52] LABS: Activated Partial Thrombo Time 109.4 Seconds (26.0-36.0)
[2022-06-10 04:04] LABS: Calcium 9.1 mg/dL (8.6-10.3); Magnesium 2.1 mg/dL (1.6-2.6); Phosphorous 3.3 mg/dL (2.7-4.5); Potassium 3.8 mEq/L (3.5-5.1)
[2022-06-10 04:10] LABS: Basophils % 0.4 %; Mean Corpuscular Hemoglobin 31.1 pg (28.0-33.3); Platelet Count 126 K/mcL (140-400); Segmented Neutrophils % 72.6 %
[2022-06-10 04:12] LABS: Basophils # 0.1 K/mcL (0.0-0.2); Eosinophils # 0.3 K/mcL (0.0-0.6); Hematocrit 42.2 % (37.5-50.1); Hemoglobin 14.1 g/dL (12.9-16.9); Immature Granulocytes % 0.4 % (0-4); Immature Platelets 6.6 % (1.1-6.1); Lymphocytes # 1.6 K/mcL (0.6-4.6); Lymphocytes % 12.6 %; Mean Corpuscular HGB Conc 33.4 g/dL (31.6-35.5); Mean Corpuscular Volume 93.2 fL (83.0-100.0); Mean Platelet Volume 10.8 fL (9.4-12.4); Monocytes # 1.5 K/mcL (0.0-1.3); Neutrophils # 9.3 K/mcL (1.6-8.9); Red Blood Count 4.53 M/mcL (4.19-5.50); Red Cell Distribution Width 13.6 % (11.5-14.5); White Blood Count 12.8 K/mcL (4.3-11.1)
[2022-06-10] MEDS: Ipratropium/Albuterol Neb 3 ML IH SCH ×4 (04:32→22:05)
[2022-06-10] MEDS: Artificial Tears SOLN 15 ML BOTTLE BOTH EYES SCH ×2 (05:37→08:21)
[2022-06-10] MEDS: Heparin 25,000UNIT/250ML 1/2NS 25,000 UNIT/250 ML IV.SOLN IVC SCH (05:37)
[2022-06-10] MEDS: Cefepime HCl 2,000 MG in 0.9 % Sodium Chloride 10 ML IVP SCH ×3 (05:38→20:17)
[2022-06-10] MEDS: Chlorhexidine Rinse 15 ML MOUTHWASH MM SCH ×2 (08:20→20:16)
[2022-06-10] MEDS: Pantoprazole 40 MG VIAL IVP SCH (08:20)
[2022-06-10] MEDS: Furosemide 20 MG/2 ML VIAL IVP SCH (08:20)
[2022-06-10] MEDS: Aspirin 81 MG TAB.CHEW PO SCH (08:20)
[2022-06-10] MEDS: *HR* Ticagrelor 90 MG TABLET PO SCH ×2 (08:21→20:16)
[2022-06-10] MEDS: Metoprolol XL (24 HR) Succ 25 MG TAB.ER.24H PO SCH (08:21)
[2022-06-10] MEDS ORDERED: *HR* Midazolam HCl 2 MG/2 ML VIAL ONE (10:05)
[2022-06-10] MEDS ORDERED: *HR* FentaNYL (PF) 100 MCG/2 ML VIAL ONE (10:05)
[2022-06-10] MEDS ORDERED: Heparin 1,000 UNITS/500 mL 500 ML ONE (10:05)
[2022-06-10] MEDS ORDERED: 0.9 % Sodium Chloride 500 ML ONE (10:27)
[2022-06-10] MEDS: Apixaban 5 MG TABLET PO SCH (18:09)
[2022-06-10] MEDS: Acetaminophen 325 MG TABLET PO PRN (18:13)
[2022-06-10] MEDS: *HR* LORazepam 1 MG TABLET PO PRN (20:17)
[2022-06-10] MEDS ORDERED: Furosemide 40 MG/4 ML VIAL IVP ONE (22:49)
[2022-06-10] MEDS: MetroNIDAZOLE 500 MG/100 ML 500 MG/100 ML BAG IVPB SCH (23:14)
[2022-06-11] MEDS ORDERED: MetroNIDAZOLE 500 MG/100 ML 500 MG/100 ML BAG IVPB SCH
[2022-06-11] MEDS: Ipratropium/Albuterol Neb 3 ML IH SCH ×4 (04:19→21:00)
[2022-06-11] MEDS: Apixaban 5 MG TABLET PO SCH ×2 (05:11→17:45)
[2022-06-11] MEDS: Cefepime HCl 2,000 MG in 0.9 % Sodium Chloride 10 ML IVP SCH ×3 (05:11→20:14)
[2022-06-11] MEDS: Acetaminophen 325 MG TABLET PO PRN ×2 (05:19→20:22)
[2022-06-11] MEDS: Chlorhexidine Rinse 15 ML MOUTHWASH MM SCH ×2 (09:10→20:14)
[2022-06-11] MEDS: Aspirin 81 MG TAB.CHEW PO SCH (09:11)
[2022-06-11] MEDS: Furosemide 20 MG TABLET PO SCH (09:11)
[2022-06-11] MEDS: Spironolactone 25 MG TABLET PO SCH (09:11)
[2022-06-11] MEDS: MetroNIDAZOLE 500 MG/100 ML 500 MG/100 ML BAG IVPB SCH ×3 (09:11→23:05)
[2022-06-11] MEDS: *HR* Ticagrelor 90 MG TABLET PO SCH ×2 (09:11→20:14)
[2022-06-11] MEDS: Pantoprazole 40 MG VIAL IVP SCH (09:11)
[2022-06-11] MEDS: Metoprolol XL (24 HR) Succ 25 MG TAB.ER.24H PO SCH (09:11)
[2022-06-11 19:14] LABS: Basophils # 0.1 K/mcL (0.0-0.2); Basophils % 0.5 %; Eosinophils # 0.4 K/mcL (0.0-0.6); Eosinophils % 3.3 %; Hematocrit 42.5 % (37.5-50.1); Hemoglobin 14.1 g/dL (12.9-16.9); Immature Granulocytes % 0.5 % (0-4); Lymphocytes # 1.5 K/mcL (0.6-4.6); Lymphocytes % 12.7 %; Mean Corpuscular HGB Conc 33.2 g/dL (31.6-35.5); Mean Corpuscular Hemoglobin 30.6 pg (28.0-33.3); Mean Corpuscular Volume 92.2 fL (83.0-100.0); Mean Platelet Volume 10.9 fL (9.4-12.4); Monocytes # 1.1 K/mcL (0.0-1.3); Monocytes % 9.3 %; Neutrophils # 8.5 K/mcL (1.6-8.9); Platelet Count 145 K/mcL (140-400); Red Blood Count 4.61 M/mcL (4.19-5.50); Red Cell Distribution Width 13.3 % (11.5-14.5); Segmented Neutrophils % 73.7 %; White Blood Count 11.6 K/mcL (4.3-11.1)
[2022-06-11 19:57] LABS: Phosphorous 3.3 mg/dL (2.7-4.5); Potassium 3.9 mEq/L (3.5-5.1)
[2022-06-12] MEDS: Ipratropium/Albuterol Neb 3 ML IH SCH ×4 (03:53→21:52)
[2022-06-12] MEDS: Apixaban 5 MG TABLET PO SCH ×2 (05:16→16:50)
[2022-06-12] MEDS: Cefepime HCl 2,000 MG in 0.9 % Sodium Chloride 10 ML IVP SCH ×2 (05:17→16:50)
[2022-06-12 05:18] LABS: Basophils # 0.1 K/mcL (0.0-0.2); Basophils % 0.6 %; Eosinophils # 0.5 K/mcL (0.0-0.6); Hematocrit 42.4 % (37.5-50.1); Hemoglobin 13.6 g/dL (12.9-16.9); Immature Granulocytes % 0.4 % (0-4); Lymphocytes % 20.1 %; Mean Corpuscular HGB Conc 32.1 g/dL (31.6-35.5); Mean Corpuscular Hemoglobin 30.2 pg (28.0-33.3); Mean Corpuscular Volume 94.2 fL (83.0-100.0); Mean Platelet Volume 10.5 fL (9.4-12.4); Monocytes # 0.8 K/mcL (0.0-1.3); Monocytes % 8.6 %; Neutrophils # 6.4 K/mcL (1.6-8.9); Platelet Count 154 K/mcL (140-400); Red Cell Distribution Width 13.3 % (11.5-14.5); Segmented Neutrophils % 65.3 %; White Blood Count 9.8 K/mcL (4.3-11.1)
[2022-06-12 05:33] LABS: Calcium 9.1 mg/dL (8.6-10.3); Magnesium 1.9 mg/dL (1.6-2.6); Phosphorous 3.5 mg/dL (2.7-4.5); Potassium 3.5 mEq/L (3.5-5.1)
[2022-06-12] MEDS: Metoprolol XL (24 HR) Succ 25 MG TAB.ER.24H PO SCH (08:42)
[2022-06-12] MEDS: Aspirin 81 MG TAB.CHEW PO SCH (08:42)
[2022-06-12] MEDS: Spironolactone 25 MG TABLET PO SCH (08:43)
[2022-06-12] MEDS: *HR* Ticagrelor 90 MG TABLET PO SCH ×2 (08:43→19:49)
[2022-06-12] MEDS: Furosemide 20 MG TABLET PO SCH (08:43)
[2022-06-12] MEDS: Chlorhexidine Rinse 15 ML MOUTHWASH MM SCH ×2 (08:44→19:49)
[2022-06-12] MEDS: MetroNIDAZOLE 500 MG/100 ML 500 MG/100 ML BAG IVPB SCH ×3 (08:45→23:03)
[2022-06-12] MEDS: Pantoprazole 40 MG VIAL IVP SCH (08:50)
[2022-06-12] MEDS: Acetaminophen 325 MG TABLET PO PRN (16:01)
[2022-06-12] MEDS: *HR* LORazepam 1 MG TABLET PO PRN (19:49)
[2022-06-13 03:02] LABS: Hematocrit 38.7 % (37.5-50.1); Hemoglobin 12.9 g/dL (12.9-16.9); Mean Corpuscular HGB Conc 33.3 g/dL (31.6-35.5); Mean Corpuscular Hemoglobin 30.6 pg (28.0-33.3); Mean Corpuscular Volume 91.9 fL (83.0-100.0); Mean Platelet Volume 10.6 fL (9.4-12.4); Platelet Count 157 K/mcL (140-400); Red Blood Count 4.21 M/mcL (4.19-5.50); Red Cell Distribution Width 13.3 % (11.5-14.5)
[2022-06-13 03:25] LABS: Calcium 8.8 mg/dL (8.6-10.3); Magnesium 1.8 mg/dL (1.6-2.6); Potassium 3.5 mEq/L (3.5-5.1)
[2022-06-13] MEDS: Ipratropium/Albuterol Neb 3 ML IH SCH ×4 (04:06→22:45)
[2022-06-13] MEDS: Apixaban 5 MG TABLET PO SCH ×2 (05:31→17:27)
[2022-06-13] MEDS: Cefepime HCl 2,000 MG in 0.9 % Sodium Chloride 10 ML IVP SCH ×2 (05:31→17:25)
[2022-06-13] MEDS: MetroNIDAZOLE 500 MG/100 ML 500 MG/100 ML BAG IVPB SCH (08:19)
[2022-06-13] MEDS: Spironolactone 25 MG TABLET PO SCH (08:20)
[2022-06-13] MEDS: Aspirin 81 MG TAB.CHEW PO SCH (08:20)
[2022-06-13] MEDS: Metoprolol XL (24 HR) Succ 25 MG TAB.ER.24H PO SCH (08:21)
[2022-06-13] MEDS: *HR* Ticagrelor 90 MG TABLET PO SCH ×2 (08:21→21:53)
[2022-06-13] MEDS: Furosemide 20 MG TABLET PO SCH (08:21)
[2022-06-13] MEDS: Chlorhexidine Rinse 15 ML MOUTHWASH MM SCH (08:22)
[2022-06-13] MEDS: Pantoprazole 40 MG VIAL IVP SCH (08:22)
[2022-06-13] MEDS: Acetaminophen 325 MG TABLET PO PRN (14:33)
[2022-06-13] MEDS: MethylPREDNISolone 40 MG/ML VIAL IVP SCH (17:28)
[2022-06-13] MEDS: *HR* LORazepam 1 MG TABLET PO PRN (21:53)
[2022-06-14] MEDS: Cefepime HCl 2,000 MG in 0.9 % Sodium Chloride 10 ML IVP SCH ×4 (00:36→23:48)
[2022-06-14] MEDS: Ipratropium/Albuterol Neb 3 ML IH SCH ×4 (04:14→22:55)
[2022-06-14] MEDS: Apixaban 5 MG TABLET PO SCH ×2 (05:22→18:28)
[2022-06-14] MEDS: MethylPREDNISolone 40 MG/ML VIAL IVP SCH (05:23)
[2022-06-14 06:15] LABS: Hematocrit 39.2 % (37.5-50.1); Mean Corpuscular HGB Conc 33.2 g/dL (31.6-35.5); Mean Corpuscular Hemoglobin 30.2 pg (28.0-33.3); Mean Platelet Volume 10.5 fL (9.4-12.4); Platelet Count 174 K/mcL (140-400); Red Blood Count 4.31 M/mcL (4.19-5.50); Red Cell Distribution Width 12.8 % (11.5-14.5); White Blood Count 8.5 K/mcL (4.3-11.1)
[2022-06-14 06:36] LABS: Magnesium 1.9 mg/dL (1.6-2.6); Phosphorous 2.3 mg/dL (2.7-4.5); Potassium 4.5 mEq/L (3.5-5.1)
[2022-06-14] MEDS: Aspirin 81 MG TAB.CHEW PO SCH (10:06)
[2022-06-14] MEDS: Metoprolol XL (24 HR) Succ 25 MG TAB.ER.24H PO SCH (10:06)
[2022-06-14] MEDS: *HR* Ticagrelor 90 MG TABLET PO SCH ×2 (10:06→20:36)
[2022-06-14] MEDS: Furosemide 20 MG TABLET PO SCH (10:06)
[2022-06-14] MEDS: Spironolactone 25 MG TABLET PO SCH (10:06)
[2022-06-14] MEDS: Acetaminophen 325 MG TABLET PO PRN (20:33)
[2022-06-14] MEDS: *HR* LORazepam 1 MG TABLET PO PRN (20:35)
[2022-06-15] MEDS: Ipratropium/Albuterol Neb 3 ML IH SCH ×3 (04:25→15:47)
[2022-06-15] MEDS: Apixaban 5 MG TABLET PO SCH ×2 (05:15→15:47)
[2022-06-15] MEDS: Cefepime HCl 2,000 MG in 0.9 % Sodium Chloride 10 ML IVP SCH ×2 (07:15→15:47)
[2022-06-15] MEDS: Spironolactone 25 MG TABLET PO SCH (07:15)
[2022-06-15] MEDS: *HR* Ticagrelor 90 MG TABLET PO SCH (07:16)
[2022-06-15] MEDS: predniSONE 20 MG TABLET PO SCH ×2 (07:16→15:47)
[2022-06-15] MEDS: Aspirin 81 MG TAB.CHEW PO SCH (07:16)
[2022-06-15] MEDS: Furosemide 20 MG TABLET PO SCH (07:16)
[2022-06-15] MEDS: Metoprolol XL (24 HR) Succ 25 MG TAB.ER.24H PO SCH (07:18)
[2022-06-15] MEDS: Acetaminophen 325 MG TABLET PO PRN (10:43)
[2022-06-15 10:46] VITALS: BP 89/59; PULSE 79; TEMP 98.5; O2SAT 91
[2022-06-16 20:17] LABS: FACV Specimen WHOLE BLOOD
[2022-06-17 09:47] LABS: Fac V Leiden R506Q Mut Result NEGATIVE
[2022-06-17 10:31] LABS: Prothrombin G20210A Specimen WHOLE BLOOD
== END 2022-06-15 18:20 | disposition home health service (06) | DRG 270 ==
LOC: SUATTDRO 10:53 → ICNU 10:53 → EDSTATUS 06-08 07:00 → 2ANU 06-10 15:01 → 2NENU 06-10 15:46
PROVIDERS: ADMIT Pediatrics; ATTEND Student in an Organized Health Care Education/Training Program